=== PATIENT | female | born 1960 | race African-American/Black ===

== ENCOUNTER 2022-09-22 10:03 | Emergency (ER) | payer BC, OTHER ==
[2022-09-22 10:32] VITALS: PULSE 62; RESP 18; TEMP 98.8; BMI 26.6
[2022-09-22 13:12] VITALS: BP 139/76
== END 2022-09-22 13:24 | disposition home or self-care (01) ==
LOC: JERFT 10:03
DX: M79.644 Pain in right finger(s) (principal)
CPT/HCPCS: 73140-TC-RT-FY; 99283-25